=== PATIENT | female | born 1960 | race Caucasian/White ===

== ENCOUNTER → 2016-09-06 | Outpatient (CLI) | payer BC | LOC: MAMO 07-14 11:00 | DX: Z12.31 Encounter for screening mammogram for malignant neoplasm of breast (principal) | CPT/HCPCS: G0202 ==

== ENCOUNTER → 2021-01-07 | Outpatient (CLI) | payer BC ==
[~2021-01-07] MED LIST: FLEXERIL 10 MG10 MG PO; ULTRAM50 MG PO
== END ==
LOC: MAMO 13:30
DX: Z12.31 Encounter for screening mammogram for malignant neoplasm of breast (principal)
CPT/HCPCS: 77063; 77067

== ENCOUNTER → 2021-03-10 | Outpatient (CLI) | payer BC | LOC: RAD 11:55 | DX: M54.6 Pain in thoracic spine (principal) | CPT/HCPCS: 71046; 72070 ==

== ENCOUNTER → 2021-03-28 | Outpatient (CLI) | payer BC | LOC: HEART 5 15:16 | DX: Z53.9 Procedure and treatment not carried out, unspecified reason (principal) | CPT/HCPCS: 94010 ==